=== PATIENT | male | born 1995 | race Two or more races ===

== ENCOUNTER 2024-09-15 15:50 | Emergency (ER) | payer MEDICAID, SELFPAY ==
[2024-09-15 15:51] VITALS: BMI 26.8
[2024-09-15 16:14] VITALS: BP 154/73; PULSE 68; RESP 18; TEMP 36.8; O2SAT 97
--- NOTE | 2024-09-15 16:27 | EKG_ITS ---
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
--- NOTE | 2024-09-15 16:27 | XR_ITS ---
Examination: PA lateral chest 2 views Technique: Upright PA lateral chest 2 views Exam date and time: September 15, 2024 1648 hrs. Indications: Chest pain beginning 5 days ago. Findings: Normal heart size No pneumonia or pulmonary edema 6 mm pulmonary nodule right lower lobe Intact osseous structures Impression: No pneumonia or pulmonary edema Recommend 3 month follow-up PA chest to document stability of 6 mm pulmonary nodule right lower lobe
--- NOTE | 2024-09-15 16:27 | PD.EDRME ---
Rapid Medical Screening Exam RME Arrival date/time: 09/15/24 15:50 28-year-old male presents emergency department for complaints of left upper abdominal pain pain with deep inspiration Chief Complaint: Abdominal Pain Time Seen by Provider: 09/15/24 16:24 Vital signs: Vital Signs Temperature 98.3 F 09/15/24 16:14 Pulse Rate 68 09/15/24 16:14 Respiratory Rate 18 09/15/24 16:14 Blood Pressure 154/73 H 09/15/24 16:14 Pulse Oximetry (%) 97 09/15/24 16:14 Oxygen Delivery Method Room Air 09/15/24 16:14
[2024-09-15 16:54] LABS: Basophils % (Auto) 0 % (0-2.5); Eosinophils # (Auto) 0.2 Thou/mm3 (0.0-0.5); Eosinophils % (Auto) 2 % (0-10); Hematocrit 40.7 % (41.0-53.0); Hemoglobin 14.2 g/dL (13.5-16.0); Immature Granulocytes % (Auto) 1 % (0-0); Immature Granulocytes Auto 0.06 Thou/mm3 (0.00-0.00); Lymphocytes # (Auto) 2.6 Thou/mm3 (1.0-4.8); Lymphocytes % (Auto) 23 % (10-50); Mean Corpuscular HGB Conc 34.9 g/dl (31.0-37.0); Mean Corpuscular Hemoglobin 29.7 pg (25.0-35.0); Mean Corpuscular Volume 85 fL (80-100); Monocytes % (Auto) 9 % (0-12); Neutrophils # (Auto) 7.2 Thou/mm3 (1.8-7.7); Neutrophils % (Auto) 65 % (37-80); Nucleated Red Blood Cell % 0 /100 WBC (0); Platelet Count 328 Thou/mm3 (140-440); RDW Standard Deviation 41.5 fL (35.1-43.9); Red Blood Count 4.78 Miln/mm3 (4.50-5.90); White Blood Count 11.2 Thou/mm3 (3.8-10.6)
[2024-09-15 17:19] LABS: Collection Type, Urine Clean Catch
[2024-09-15 17:32] LABS: Bacteria,Urine Rare; Bilirubin,Urine Negative (Negative); Blood,Urine Negative (Negative); Clarity,Urine Clear (Clear/Hazy); Color,Urine Yellow (Lt Yel-Yel); Culture Indicated,Urine Not Indicated; Glucose, Urine Negative (Negative); Ketones,Urine Negative (Negative); Leukocyte Esterase,Urine Negative (Negative); Nitrite,Urine Negative (Negative); PH,Urine 6.5 (5.0-7.0); Protein,Urine Trace (Neg - Trace); RBC,Urine 2 /hpf (0-3); Specific Gravity,Urine 1.033 (1.001-1.035); Squamous Epithelial Cell,Urine < 1 /hpf (0-5); Urobilinogen,Urine Negative mg/dL (0.0-1.0); WBC,Urine < 1 /hpf (0-5)
[2024-09-15 17:52] LABS: Alanine Aminotransferase 56 U/L (10-49); Albumin, Serum 4.7 gm/dL (3.5-5.0); Albumin/Globulin Ratio 1.4 (1.2-2.2); Alkaline Phosphatase 98 U/L (46-116); Anion Gap 7 (7-16); Aspartate Amino Transferase 46 U/L (0-34); BUN/Creatinine Ratio 13 Ratio (12-20); Bilirubin,Total 0.7 mg/dL (0.3-1.2); Blood Urea Nitrogen 12 mg/dL (9-23); Calcium 9.2 mg/dL (8.3-10.6); Calcium (Corrected) 9.2 mg/dL (8.5-10.1); Carbon Dioxide 26.4 mMol/L (20.0-31.0); Chloride 105 mMol/L (98-107); Creatinine (Component) 0.9 mg/dL (0.6-1.3); Estimated Creatinine Clearance 110.3 mL/min (>60); Globulin 3.3 gm/dL (2.3-3.5); Glucose 88 mg/dL (74-106); Osmolality,Calculated 274 (275-295); Sodium 138 mMol/L (136-145); Troponin I < 0.002 ng/mL (0.0-0.045); eGFR > 60 See Note
[2024-09-15 18:04] LABS: Lipase 26 U/L (12-53)
--- NOTE | 2024-09-15 18:35 | PD.EDABDPN ---
ED Abdominal Pain RME/HPI General Chief Complaint: Abdominal Pain Stated complaint: LEFT SIDE CHEST AND ABD PAIN X 5D Time seen by provider: 09/15/24 16:24 Arrival date/time: 09/15/24 15:50 RME / HPI RME / HPI narrative: 09/15/24 15:50 28-year-old male presents emergency department for complaints of left upper abdominal pain pain with deep inspiration This section includes all my notes and documentations, including HPI, PE, and ED course. Tip Hui MD HPI: 28-year-old male here with several days of pain in the left flank area. Worse with deep breathing. Worse with certain movement and certain position. No other complaints. ROS: All negative except as documented in HPI. Physical Exam: General: Alert and oriented. No acute distress when remaining still. Eyes: Conjunctivae and lids clear. ENT: No nasal congestion. Neck: Supple. Heart: RRR. Lungs: No respiratory distress. Good air movement. No rhonchi, wheezing, rales. Chest: Tenderness of the left rib cage with palpation, inferiorly and laterally. Abdomen: Soft and nontender. Normal bowel sounds. No distension. No rebound or guarding. Back: No CVA tenderness. Skin: Warm and dry. Neuro: Alert and oriented X 3. I reviewed all diagnostic test results. My interpretation of the EKG is sinus rhythm with no acute ST?T changes. My interpretation of the chest x-ray is no acute findings. Blood tests and urine tests unremarkable. At this point, diagnoses include musculoskeletal chest wall pain laterally and inferiorly. Recommended supportive care. Based on my best medical judgment, made decision no further evaluation or treatment indicated at this time. Patient understands and agrees to the discharge instructions customized and printed, see below. Discharge instructions from Dr. Hui: 1. After extensive evaluation, there is no life-threatening condition.? Such as heart attack or pneumothorax (collapsed lung). 2. The chest wall has many joints and muscles between the ribs. Your pain is from small tears of the muscle fibers. It will take 2 to 3 weeks to get completely better. Activity as tolerated. 3. Apply ice or heat if helpful.? Tylenol/ibuprofen as needed. Lidocaine patches as needed. 4. See a private doctor on 09/20/2024 if not getting better. To make sure there is no serious underlying heart condition, ask to help you get more tests for your heart that cannot be done here in the ER.? Such as Holter Monitor (cardiac monitoring at home from a day to even a month), heart stress test (on treadmill or with medication), echocardiogram (imaging of your heart structures), heart catherization (checking for blockages in your heart arteries), and a referral to see a Language And Literature Division Chair.? 5. Seek immediate medical care with worsening or with any concerns.?? Instrucciones de cortez del Dr. Hui: 1. Tras maria esther evaluaci?n exhaustiva, no se observa ninguna afecci?n potencialmente mortal, edvin un infarto o un neumot?rax (colapso pulmonar). 2. La pared tor?cica tiene muchas articulaciones y m?sculos entre las costillas. El dolor se debe a katy?os desgarros de las fibras musculares. La recuperaci?n completa tardar? de 2 a 3 semanas. Realice la actividad seg?n lo tolere. 3. Aplique hielo o calor si le resulta ?til. Tylenol/ibuprofeno seg?n sea necesario. Parches de lidoca?na seg?n sea necesario. 4. Consulte con un m?dico particular el 20/09/2024 si no mejora. Para asegurarse de que no haya maria esther afecci?n card?kings subyacente grave, solicite ayuda para realizar m?s pruebas card?acas que no se pueden realizar en urgencias. [place] un monitor Holter (monitoreo card?aco en casa desde un d?a hasta un mes), maria esther prueba de esfuerzo card?aco (en cinta o con medicaci?n), un ecocardiograma (im?genes de las estructuras del coraz?n), un cateterismo card?aco (para comprobar si hay obstrucciones en las arterias del coraz?n) y maria esther derivaci?n a un cardi?logo. 5. Busque atenci?n m?dica inmediata si collins estado empeora o tiene alguna inquietud. Tip Hui MD Related Data Previous Rx's ?Medication ?Instructions ?Recorded famotidine 20 mg tablet (Pepcid) 20 mg PO QDAY PRN pain #30 tabs 01/28/22 Allergies Allergy/AdvReac Type Severity Reaction Status Date / Time No Known Allergies Allergy Verified 09/15/24 15:53 Course Quality Measures none Orders Category Date Time Status EKG (ED ONLY) *Do not use* NOW Care 09/15/24 16:27 Completed EKG (ED Only) Stat Exams 09/15/24 16:27 Draft XR chest 2V Stat Exams 09/15/24 16:27 Completed CBC Stat Lab 09/15/24 16:42 Completed Comprehensive Metabolic Panel Stat Lab 09/15/24 16:42 Completed Lipase Stat Lab 09/15/24 16:42 Completed Troponin I Stat Lab 09/15/24 16:42 Completed UA, C/S IF [Urinalysis, C/S if Indicated] Stat Lab 09/15/24 17:06 Completed Vital Signs Vital signs: Vital Signs Temperature 98.3 F 09/15/24 16:14 Pulse Rate 68 09/15/24 16:14 Respiratory Rate 18 09/15/24 16:14 Blood Pressure 154/73 H 09/15/24 16:14 Pulse Oximetry (%) 97 09/15/24 16:14 Oxygen Delivery Method Room Air 09/15/24 16:14 Abdominal Pain MDM Patient data External records reviewed:: [facility] previous records Clinical information provided by:: patient Social determinants that could affect healthcare access:: none Patient has the following chronic illnesses:: None How is presenting disease/condition affected by chronic disease/condition?: no chronic disease Evaluation data The following diagnostics were reviewed and interpreted by me:: lab results, radiology exam(s) and EKG tracing(s) Lab and/or radiology exams considered but not ordered:: None Interpretation Summary: Normal diagnostics Medications / Prescriptions Medications or Prescriptions considered but not ordered:: None Medication administrations:: None Consultations Consultation(s) initiated? (list below): No Diagnosis Differential diagnosis abdominal pain: other ([place], pneumonia, pneumothorax, musculoskeletal chest wall pain) Most likely diagnosis given after review of the tests above:: Musculoskeletal chest wall pain Admission Indicated Admission indicated?: not indicated Explain why admission is indicated or not indicated:: There was no indication for admission. Admission Request Was there a request for admission?: No Disposition Plan Disposition Plan: Discharge Discharge Attestation Discharge Attestation: The patient and all family members were given an opportunity to ask questions and understood the discharge instructions. Discharge instructions specifically effects, indications for sooner follow up or return to the emergency department, and the expected course of current diagnosis. Patient condition: Stable Discharge Plan Plan Patient Disposition: HOME (Self Care) Prescriptions/Referrals Prescriptions/Med Rec: No Action famotidine [Pepcid] 20 mg tablet 20 mg PO QDAY PRN (Reason: pain) Qty: 30 0RF Referrals: No Primary/Family,Physician [Primary Care Provider] - In 1 week Problem List Clinical Impression: Rib pain on left side Patient/Caregiver Discharge Instructions Discharge Activity: activity as tolerated Education Materials: ED Chest Wall Strain (Child) Additional Instructions: Discharge instructions from Dr. Hui: 1. After extensive evaluation, there is no life-threatening condition.? Such as heart attack or pneumothorax (collapsed lung). 2. The chest wall has many joints and muscles between the ribs. Your pain is from small tears of the muscle fibers. It will take 2 to 3 weeks to get completely better. Activity as tolerated. 3. Apply ice or heat if helpful.? Tylenol/ibuprofen as needed. Lidocaine patches as needed. 4. See a private doctor on 09/20/2024 if not getting better. To make sure there is no serious underlying heart condition, ask to help you get more tests for your heart that cannot be done here in the ER.? Such as Holter Monitor (cardiac monitoring at home from a day to even a month), heart stress test (on treadmill or with medication), echocardiogram (imaging of your heart structures), heart catherization (checking for blockages in your heart arteries), and a referral to see a Language And Literature Division Chair.? 5. Seek immediate medical care with worsening or with any concerns.?? Instrucciones de cortez del Dr. Hui: 1. Tras maria esther evaluaci?n exhaustiva, no se observa ninguna afecci?n potencialmente mortal, edvin un infarto o un neumot?rax (colapso pulmonar). 2. La pared tor?cica tiene muchas articulaciones y m?sculos entre las costillas. El dolor se debe a katy?os desgarros de las fibras musculares. La recuperaci?n completa tardar? de 2 a 3 semanas. Realice la actividad seg?n lo tolere. 3. Aplique hielo o calor si le resulta ?til. Tylenol/ibuprofeno seg?n sea necesario. Parches de lidoca?na seg?n sea necesario. 4. Consulte con un m?dico particular el 20/09/2024 si no mejora. Para asegurarse de que no haya maria esther afecci?n card?kings subyacente grave, solicite ayuda para realizar m?s pruebas card?acas que no se pueden realizar en urgencias. [place] un monitor Holter (monitoreo card?aco en casa desde un d?a hasta un mes), maria esther prueba de esfuerzo card?aco (en cinta o con medicaci?n), un ecocardiograma (im?genes de las estructuras del coraz?n), un cateterismo card?aco (para comprobar si hay obstrucciones en las arterias del coraz?n) y maria esther derivaci?n a un cardi?logo. 5. Busque atenci?n m?dica inmediata si collins estado empeora o tiene alguna inquietud. Print Language: Danish Stand Alone Forms: Millie Award Info., Patient Portal Info Letter
[2024-09-15 19:06] VITALS: BP 142/76; PULSE 76; RESP 18; TEMP 37; O2SAT 96
== END 2024-09-15 19:08 | disposition home or self-care (01) ==
PROVIDERS: Nurse Practitioner Primary Care; Emergency Provider Emergency Medicine
DX: R07.81 Pleurodynia (principal)
CPT/HCPCS: 36415; 71046; 80053; 81001; 83690; 84484; 85025; 93005; 99283

== ENCOUNTER 2024-11-11 19:09 | Emergency (ER) | payer MEDICAID, SELFPAY ==
[2024-11-11 19:12] VITALS: BMI 29.0
[2024-11-11 20:42] VITALS: BP 125/85; PULSE 64; RESP 16; TEMP 37; O2SAT 98
--- NOTE | 2024-11-12 03:53 | EDNOTE_ITS ---
ED Male Genitalurinary RME/HPI General Chief complaint: General Adult/Misc Complain Stated complaint: rectal pain and bleeding Time Seen by Provider: 11/11/24 21:12 Arrival date/time: 11/11/24 19:09 29M with no significant PMH presents to ED with 6 months of intermittent rectal pain and red blood on tissue paper. Patient has also had constipation. Patient does not participate in anal intercourse. Limitations: no limitations Related Data Previous Rx's ?Medication ?Instructions ?Recorded famotidine 20 mg tablet (Pepcid) 20 mg PO QDAY PRN esteban n #30 tabs 01/28/22 hydrocortisone 2.5 % topical cream 1 applic LA QDAY LA N hemorrhoids 11/11/24 with perineal applicator #30 grams (Anusol-HC) lidocaine 5 % topical ointment 1 applic topical QDAY P RN skin 11/11/24 irritation #30 grams Allergies Allergy/AdvReac Type Severity Reaction Status Date / Time No Known Allergies Allergy Verified 11/11/24 19:17 Review of Systems Review of Systems Systems Reviewed: All systems reviewed, normal except as documented Constitutional Constitutional: Reports system reviewed and no additional complaints, except as documented, Denies fever(s) and Denies headache(s) ENT Ears, Nose, Mouth, and Throat: Denies disequilibrium and Denies headache(s) Cardiovascular Cardiovascular: Reports system reviewed and no additional complaints, except as documented, Denies chest pain and Denies dyspnea Respiratory Respiratory: Reports system reviewed and no additional complaints, except as documented, Denies cough and Denies dyspnea Gastrointestinal Gastrointestinal: Reports system reviewed and no additional complaints, except as documented, Reports as per HPI, Denies abdominal pain, Reports constipation, Reports hematochezia (on tissue paper), Denies nausea, Denies vomiting and Reports other (rectal pain) Neurologic Neurologic: Reports system reviewed and no additional complaints, except as documented, Denies confusion, Denies disequilibrium and Denies headache(s) Psychiatric Psychiatric: Denies confusion Past Medical History Past Medical History CARDIAC: Negative Congestive Heart Failure RESPIRATORY: Negative Chronic Obstructive Pulmonary Disease (COPD) GENITOURINARY: Negative Renal Disease ENDOCRINE: Negative Diabetes Mellitus Type 1 or Diabetes Mellitus Type 2 Social History SMOKING STATUS: Never smoker ED Exam General Limitations: Present no limitations General appearance: Present alert and in no apparent distress Head Head exam: Present atraumatic Eye Eye exam: Present normal appearance, PERRL and EOMI ENT ENT exam: Present normal exam, normal oropharynx and mucous membranes moist Neck Neck exam: Present normal inspection, full ROM and trachea midline Chest Chest inspection: Present normal inspection and symmetric chest wall rise Respiratory Respiratory exam: Present normal lung sounds bilaterally Cardiovascular Cardiovascular exam: Present regular rate, normal rhythm and normal heart sounds Abdominal Exam Abdominal exam: Present soft and normal bowel sounds Rectal Exam Rectal exam: Present hemorrhoids and other (anal fissures) Extremities Exam Extremities exam: Present normal inspection and full ROM Back Exam Back exam: Present normal inspection and full ROM Neurological Exam Neurological exam: Present alert, oriented X3 and CN II-XII intact Psychiatric Psychiatric exam: Present normal affect and normal mood Skin Skin exam: Present warm, dry, intact and normal color Course Quality Measures none Vital Signs Vital signs: Vital Signs Temperature 98.6 F 11/11/24 20:42 Pulse Rate 64 11/11/24 20:42 Respiratory Rate 16 11/11/24 20:42 Blood Pressure 125/85 H 11/11/24 20:42 Pulse Oximetry (%) 98 11/11/24 20:42 Oxygen Delivery Method Room Air 11/11/24 20:42 O2 at 98% on RA and WNLs Urogenital - Male MDM Narrative MDM Narrative:: 29M with no significant PMH presents to ED with 6 months of intermittent rectal pain and red blood on tissue paper. Patient has also had constipation. Patient does not participate in anal intercourse. 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 Patient is afebrile, calm, and alert. Meds and clinical counselor given, including to see GI for possible colonoscopy. Patient data External records reviewed:: [facility] previous records Clinical information provided by:: patient Social determinants that could affect healthcare access:: none Patient has the following chronic illnesses:: none How is presenting disease/condition affected by chronic disease/condition?: no chronic disease Evaluation data The following diagnostics were reviewed and interpreted by me:: other (specify) (none) Lab and/or radiology exams considered but not ordered:: not ordered Interpretation Summary: n/a Medications / Prescriptions Medications or Prescriptions considered but not ordered:: not ordered Medication administrations:: n/a Consultations Consultation(s) initiated? (list below): No Diagnosis Urogenital Male Differential Diagnosis: urinary tract infection, priapism, urethritis, epididymitis, genital herpes simplex, prostatitis, acute retention of urine, inguinal hernia and other (constipation, anal fissure, hemorrhoid) Most likely diagnosis given after review of the tests above:: constipation, anal fissure, hemorrhoid Admission Indicated Admission indicated?: not indicated Admission Request Was there a request for admission?: No Disposition Plan Disposition Plan: Discharge Discharge Attestation Discharge Attestation: The patient and all family members were given an opportunity to ask questions and understood the discharge instructions. Discharge instructions specifically effects, indications for sooner follow up or return to the emergency department, and the expected course of current diagnosis. Patient condition: Stable Discharge Plan Plan Patient Disposition: HOME (Self Care) Discharge Disposition comment: Stable Prescriptions/Referrals Prescriptions/Med Rec: New lidocaine 5 % ointment 1 applic topical QDAY PRN (Reason: skin irritation) Qty: 30 0RF Rx Instructions: Use 15 min prior to BM hydrocortisone [Anusol-HC] 2.5 % cream with perineal applicator 1 applic LA QDAY PRN (Reason: hemorrhoids) Qty: 30 0RF No Action famotidine [Pepcid] 20 mg tablet 20 mg PO QDAY PRN (Reason: pain) Qty: 30 0RF Referrals: Keo Pugh MD [Primary Care Provider] - In 1 week Problem List Clinical Impression: Constipation, Anal fissure, Hemorrhage Patient/Caregiver Discharge Instructions Education Materials: Understanding Anal Fissures, ED Constipation (Adult), ED Hemorrhoids Additional Instructions: Please follow-up with PCP within 24-48 hours and return immediately if symptoms worsen. Print Language: Macanese Stand Alone Forms: Patient Portal Info Letter BRYN/ADJUNCT PHYSICAL EDUCATION INSTRUCTOR Supervising Physician BRYN/JULIET Supervising Physician: Dr. Hui
== END 2024-11-11 22:45 | disposition home or self-care (01) ==
PROVIDERS: Emergency Provider Emergency Medicine; PCP Family Medicine
DX: K60.2 Anal fissure, unspecified (principal); K59.00 Constipation, unspecified; K62.5 Hemorrhage of anus and rectum; K64.4 Residual hemorrhoidal skin tags
CPT/HCPCS: 99281

== ENCOUNTER 2025-03-30 22:35 | Emergency (ER) | payer MEDICAID, SELFPAY ==
[2025-03-30 22:36] VITALS: BMI 25.4
[2025-03-30 23:05] VITALS: BP 130/83; PULSE 68; RESP 18; TEMP 36.9; O2SAT 97
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
== END 2025-03-31 01:32 | disposition home or self-care (01) ==
PROVIDERS: Emergency Provider Emergency Medicine; PCP Family Medicine
DX: S00.03XA Contusion of scalp, initial encounter (principal); S39.012A Strain of muscle, fascia and tendon of lower back, initial encounter; S46.912A Strain of unspecified muscle, fascia and tendon at shoulder and upper arm level, left arm, initial encounter; S80.02XA Contusion of left knee, initial encounter; V43.52XA Car driver injured in collision with other type car in traffic accident, initial encounter; Y92.410 Unspecified street and highway as the place of occurrence of the external cause
CPT/HCPCS: 70450; 71111; 72100; 73030; 73562; 99283